=== PATIENT | male | born 1980 | race Hispanic/Latino ===

== ENCOUNTER 2022-12-25 05:53 | Emergency (ER) | payer BC, SELFPAY ==
--- OUTSIDE RECORDS SUMMARY | 2022-12-25 05:56 | XMS REPORT | Continuity of Care Document ---
:1980 Author Organization [facility] t Address [address] [facility]. [address] [place] [address] Care Team Providers Name Role Phone PCP, PATIENT DOES NOT HAVE A Primary Care Physician Unavaila ROD Perez Attending Clinician Unavailable RAQUEL FULTON Attending Clinician Unavailable Raquel Hernadez Attending Clinician Payers Payer Name Policy Type Policy Number Effective Date Expiration Date S freida [facility] [id number] 2015 00:00:00 Problems Condition Condition Condition Status Onset Resolution Last Treating Co mments Source Name Details Category Date Date Treatment Clinician Date No known No known Disease Unive rs active active ity of problems problems [facility] Allergies, Adverse Reactions, Alerts Allergy Allergy Status Severity Reaction(s) Onset Inactive Treating Comm ents Source Name Type Date Date Clinician NO KNOWN Drug Active Univers ALLERGIE Class ity of S [facility] Social History Social Habit Start Date Stop Date Quantity Comments Source Exposure to Not sure [facility] SARS-CoV-2 (event) Medica l Branch Sex Assigned At [birth year] [facility] 00:00:00 00:00:[address] [facility] Smoking Status Start Date Stop Date Source Unknown if ever smoked [facility] Medications Ordered Filled Start Stop Current Ordering Indication Dosage Frequency Signature Comments Components Source Medication Medication Date Date Medication? Clinician (SIG) Name Name &lt 0 No 75 8- 00:00: 00 TAKE 0 No 75 TABLET BY 03-18 MOUTH TWICE 00:00: DAILY WITH 00 MEALS &lt 0 No 75 03-18 00:00: 00 TAKE 0 No 10 TABLET 8-04 DAILY. 00:00: 00 diclofenac 2021- No [id number] 75mg Take 1 Univers 75 mg EC 3-15 04-15 tablet by ity o f tablet 00:00: 04:59 mouth 2 [place] 00 :00 (two) Medical times [place] daily with meals for 30 days. diclofenac 2021- No [id number] 75mg Take 1 Univers 75 mg EC 3-15 04-15 tablet by ity o f tablet 00:00: 04:59 mouth 2 [place] 00 :00 (two) Medical times Branch daily with meals for 30 days. olopatadine Yes 1[drp] Place 1 U nivers (PATANOL) 5-01 Drop in ity of 0.1 % 00:00: both eyes [place] [facility] 00 2 (two) Medica l solution times Branch daily. olopatadine Yes 1[drp] Place 1 U nivers (PATANOL) 5-01 Drop in ity of 0.1 % 00:00: both eyes [place] [facility] 00 2 (two) Medica l solution times Branch daily. Vital Signs Vital Name Observation Time Observation Value Comments Source Systolic blood 2021-10-27 19:13:00 142 mm[Hg] Univer sity [facility] Diastolic blood 2021-10-27 19:13:00 95 [facility] 2021-10-27 18:51:00 60 /min [facility] Body height 2021-10-27 18:51:00 167.6 cm [facility] Body weight 2021-10-27 18:51:00 105.688 kg [facility] BMI 2021-10-27 18:51:00 37.61 kg/m2 [facility] Oxygen saturation in 2021-10-27 18:51:00 100 /min [facility] Arterial blood by [facility] Pulse oximetry Branch BP Systolic 2022-03-18 10:29:00 163 mm[Hg] BP Diastolic 2022-03-18 10:29:00 111 mm[Hg] Weight Measured 2022-03-18 10:29:00 239.20 pounds Height Measured 2022-03-18 10:29:00 66.14 inches Body Temperature 2022-03-18 10:29:00 98.30 degrees Heart Rate 2022-03-18 10:29:00 60.00 /min Respiratory Rate 2022-03-18 10:29:00 18.00 /min BP Systolic 2021-07-08 14:17:00 152 mm[Hg] BP Diastolic 2021-07-08 14:17:00 101 mm[Hg] Weight Measured 2021-07-08 14:17:00 237.00 pounds Height Measured 2021-07-08 14:17:00 66.14 inches Body Temperature 2021-07-08 14:17:00 98.60 degrees Heart Rate 2021-07-08 14:17:00 71.00 /min Respiratory Rate 2021-07-08 14:17:00 18.00 /min BP Systolic 2019-07-11 14:15:00 133 mm[Hg] BP Diastolic 2019-07-11 14:15:00 90 mm[Hg] Weight Measured 2019-07-11 14:15:00 233.80 pounds Height Measured 2019-07-11 14:15:00 66.14 inches Body Temperature 2019-07-11 14:15:00 98.20 degrees Heart Rate 2019-07-11 14:15:00 69.00 /min Respiratory Rate 2019-07-11 14:15:00 18.00 /min BP Systolic 2017-06-27 14:29:00 136 mm[Hg] BP Diastolic 2017-06-27 14:29:00 95 mm[Hg] Weight Measured 2017-06-27 14:29:00 Height Measured 2017-06-27 14:29:00 Body Temperature 2017-06-27 14:29:00 Heart Rate 2017-06-27 14:29:00 Respiratory Rate 2017-06-27 14:29:00 Respiratory Rate 2017-06-27 13:41:00 16.00 /min BP Systolic 2017-06-27 13:41:00 135 mm[Hg] BP Diastolic 2017-06-27 13:41:00 94 mm[Hg] Weight Measured 2017-06-27 13:41:00 235.60 pounds Height Measured 2017-06-27 13:41:00 66.00 inches Body Temperature 2017-06-27 13:41:00 98.00 degrees Heart Rate 2017-06-27 13:41:00 68.00 /min Procedures This patient has no known procedures. Plan of Care Planned Activity Planned Date Details Comments Source Goal Plan of Care Note [code = 99043-9] Goal Plan of Care Note [code = 61565-2] Goal Plan of Care Note [code = 36400-4] Goal Plan of Care Note [code = 68413-4] Goal Plan of Care Note [code = 77161-8] Goal Plan of Care Note [code = 31217-8] Goal Plan of Care Note [code = 17568-9] Goal Plan of Care Note [code = 36732-6] Goal Plan of Care Note [code = 98296-3] Goal Plan of Care Note [code = 58499-7] Goal Plan of Care Note [code = 53688-3] Goal Plan of Care Note [code = 96403-7] Encounters Start End Encounter Admission Attending Care Care Encounter Source Date/Time Date/Time Type Type Clinicians Facility Department ID 2022-10-04 2022-10-04 Outpatient [facility] [id number] Y[place]an 14:46:34 14:46:34 0[address] [facility] [place] 2022-07-14 2022-07-14 Outpatient [facility] [id number] Yazan 13:59:22 13:59:22 1130 [facility] 2022-03-18 2022-03-18 Outpatient [id number] 00:00:00 00:00:00 Visit [id number] 2022-02-17 2022-02-17 Outpatient Milton SALDIVAR [facility] [id number] Univers 15:30:00 15:30:00 ROD walker [facility] 2022-02-17 2022-02-17 Outpatient Milton SALDIVAR [facility] [id number] Univers 15:30:00 15:30:00 ROD walker [facility] 2021-10-27 2021-10-27 Outpatient Milton FULTON [facility] [id number] Univers 14:01:38 23:59:00 [facility] 2021-10-27 Office Donaldo [facility] [id number] Univers 14:00:00 14:30:00 Visit Raquel Ferrell [facility] [id number] it y paul RIDDLE [id number] Elver as LEONARDO?BLEA [id number] In monty [address] MEDICAL OFFICE BUILDING 2021-10-27 2021-10-27 [facility] [id number] Univers 14:00:00 14:00:00 RAQUEL [facility] Results Test Description Test Time Test Comments Results Result Comments Source CALCIUM, IONIZED 2022-10-05 15:28:33 Test Item Value Reference Range Interpretation Comme nts CALCIUM, IONIZED (test 5.67 MG/DL 4.70-5.90 [facility] has important pathology staff code = 03780) changes effect colton 10/13/2022. New pathology staff will provide uninterrupted, excellent patient care and clinical co nsultation. See URL: [email or web address]. UNLESS OTHERWISE INDIC ATED, [facility], [facility]. [address] [place] [address] 4 WIRELESS TELEGRAPHER: GWEN URIBE M.D. CLIA NUMBER [id number] [place]. [id number] PSA, [id number] 04:31:23 Test Item Value Reference Range Interpretation Comments PSA, TOTAL 0.49 NG/ML See_Comment NOTE: Methodol ogy is Ton (test code = Maury Electroch emiluminescence 2606) Immunoassay tra ceable to WHO reference stand juan 96/760. UNLESS OTHERWIS E INDICATED, ALL TESTING PERFORM ED ATCLINICAL PATHOLOGY LABOR [facility], [facility]. [address] [place] [address] LABORATORY DIRE CTOR: GWEN MUIR M.D. CLIA NUMBER [id number] [place]. [id number] [A utomated message] The sy stem which generated this result transmitted ref erence range: <=4.00. The ref erence range was not used to int erpret this result as jessica l/abnormal. LIPID [id number] 03:07:01 Test Item Value Reference Range Interpretation Comments CHOLESTEROL (test 178 MG/DL <200 code = 2210) TRIGLYCERIDES (test 123 MG/DL <150 code = 2232) HDL CHOLESTEROL (test 35 MG/DL >39 L code = 2220) CALC LDL CHOL (test 120 MG/DL <100 H NOTE: C ALCULATED LDL code = 2237) IS BASED ON VINCENT-LEONG METHOD WHICHINCLUDES ADJUSTABLE TRIGLYCERIDE:VL DL CHOLESTEROL RAT IO.THIS FACTOR VARIES B Y MEASURED TRIGLY CERIDE AND NON-HDLCHOL ESTEROL CONCENTRATIONS WITH INCREASED CALCU LATED LDL SEENIN HIGH ER TRIGLYCERIDE OR LOWER NON-HDL SPECIME NS. FOR MOREINFORMATION , SEE CLIENT ANNOUNCE MENT AT [email or web address] RISK RATIO LDL/HDL 3.43 RATIO <3.55 (test code = 2238) COMPREHENSIVE METABOLIC [id number] 03:07:01 Test Item Value Reference Range Interpretation Comments GLUCOSE (test code = 81 MG/DL 70-99 2216) BUN (test code = 10 MG/DL 6-20 2207) CREATININE (test 0.89 MG/DL 0.80-1.40 code = 2214) eGFR (2020 CKD-EPI) 110 >60 (test code = 85220) ML/MIN/1.73 CALC BUN/CREAT (test 11 RATIO 6-28 code = 2235) SODIUM (test code = 140 MEQ/L 920-521 6072) POTASSIUM (test code 5.1 MEQ/L 3.5-5.4 = 222) CHLORIDE (test code 104 MEQ/L 95-107 = 221) CARBON DIOXIDE (test 26 MEQ/L 19-31 code = 2206) CALCIUM (test code = 11.4 MG/DL 8.5-10.5 H 2208) PROTEIN, TOTAL (test 7.3 G/DL 6.1-8.3 code = 2229) ALBUMIN (test code = 4.8 G/DL 3.5-5.2 2200) CALC GLOBULIN (test 2.5 G/DL 1.9-3.7 code = 2240) CALC A/G RATIO (test 1.9 RATIO 1.0-2.6 code = 2234) BILIRUBIN, TOTAL 0.5 MG/DL See_Comment [Automated message] (test code = 2207) The syste m which generated this result transmit karine reference range : <=1.2. The refe rence range was not u sed to interpret th is result as normal/abnormal . ALKALINE PHOSPHATASE 112 U/L 40-119 (test code = 2203) AST (test code = 27 U/L 9-50 2217) ALT (test code = 31 U/L 5-50 2218) HEMOGLOBIN [id number] 02:27:23 Test Item Value Reference Range Interpretation Comments HEMOGLOBIN A1c (test code = 19160) 5.7 % 4.2-5.6 H CBC W/AUTO DIFF WITH [id number] 01:45:03 Test Item Value Reference Range Interpretation Comments WBC (test code = 5.2 K/UL 3.5-11.0 1001) RBC (test code = 5.78 M/UL 4.50-6.10 1002) HEMOGLOBIN (test code 16.5 G/DL 13.5-17.0 = 1003) HEMATOCRIT (test code 48.3 % 40.0-51.0 = 1004) MCV (test code = 83.6 fL 80.0-99.0 1005) MCH (test code = 28.5 PG 25.0-33.0 1006) MCHC (test code = 34.2 G/DL 31.0-36.0 1007) RDW (test code = 12.9 % 11.5-15.0 1038) NEUTROPHILS (test 44.0 % code = 1008) LYMPHOCYTES (test 39.4 % code = 1010) MONOCYTES (test code 12.3 % = 1011) EOSINOPHILS (test 2.7 % code = 1012) BASOPHILS (test code 1.2 % = 1013) IMMATURE GRANULOCYTES 0.4 % (test code = 1036) NUCLEATED RBCS (test 0.0 /100 WBC'S See_Comment [Aut omated code = 1065) message] The sy stem which generated this result transmitted reference range : 0.0. The refere nce range was not u sed to interpret th is result as normal/abnormal . PLATELET COUNT (test 198 K/UL 130-400 code = 1015) ABSOLUTE NEUTROPHILS 2.29 K/UL 1.50-7.50 (test code = 1066) ABSOLUTE LYMPHOCYTES 2.05 K/UL 1.00-4.00 (test code = 1067) ABSOLUTE MONOCYTES 0.64 K/UL 0.20-1.00 (test code = 1068) ABSOLUTE EOSINOPHILS 0.14 K/UL 0.00-0.50 (test code = 1040) ABSOLUTE BASOPHILS 0.06 K/UL 0.00-0.20 (test code = 1069) ABS IMMATURE 0.02 K/UL 0.00-0.10 GRANULOCYTES (test code = 1020) ABS NUCLEATED RBCS 0.00 K/UL 0.00-0.11 (test code = 46342) LIPID [id number] 00:00:00 Test Item Value Reference Range Interpretation Comments CHOLESTEROL (test code = 2210) 150 MG/DL TRIGLYCERIDES (test code = 2232) 103 MG/DL HDL CHOLESTEROL (test code = 2220) 33 MG/DL CALC LDL CHOL (test code = 2237) 96 MG/DL RISK RATIO LDL/HDL (test code = 2.92 RATIO 8) HEMOGLOBIN [id number] 00:00:00 Test Item Value Reference Range Interpretation Comments HEMOGLOBIN A1c (test code = 16438) 5.6 % HEMOGLOBIN [id number] 00:00:00 Test Item Value Reference Range Interpretation Comments HEMOGLOBIN A1c (test code = 01158) 5.6 % COMPREHENSIVE METABOLIC [id number] 00:00:00 Test Item Value Reference Range Interpretation Comments GLUCOSE (test code = 2217) 78 MG/DL BUN (test code = 2208) 14 MG/DL CREATININE (test code = 2214) 0.83 MG/DL eGFR AMER. (test code 128 ML/MIN/1.73 = 00911) eGFR NON- AMER. (test 111 ML/MIN/1.73 code = 45926) CALC BUN/CREAT (test code = 17 RATIO 2235) SODIUM (test code = 2231) 141 MEQ/L POTASSIUM (test code = 2228) 4.4 MEQ/L CHLORIDE (test code = 2215) 105 MEQ/L CARBON DIOXIDE (test code = 26 MEQ/L 2205) CALCIUM (test code = 2209) 10.6 MG/DL PROTEIN, TOTAL (test code = 7.7 G/DL 2228) ALBUMIN (test code = 2201) 4.7 G/DL CALC GLOBULIN (test code = 3.0 G/DL 2239) CALC A/G RATIO (test code = 1.6 RATIO 2234) BILIRUBIN, TOTAL (test code = 0.4 MG/DL 7) ALKALINE PHOSPHATASE (test 112 U/L code = 2204) AST (test code = 2218) 25 U/L ALT (test code = 2219) 26 U/L CBC W/AUTO [id number] 00:00:00 Test Item Value Reference Range Interpretation Comments WBC (test code = 1001) 7.4 K/UL RBC (test code = 1002) 5.57 M/UL HEMOGLOBIN (test code = 1003) 15.6 G/DL HEMATOCRIT (test code = 1004) 45.0 % MCV (test code = 1005) 80.8 fL MCH (test code = 1006) 28.0 PG MCHC (test code = 1007) 34.7 G/DL RDW (test code = 1038) 12.6 % NEUTROPHILS (test code = 1008) 58.5 % LYMPHOCYTES (test code = 1010) 30.0 % MONOCYTES (test code = 1011) 9.2 % EOSINOPHILS (test code = 1012) 1.5 % BASOPHILS (test code = 1013) 0.8 % PLATELET COUNT (test code = 1015) 240 K/UL CBC W/AUTO [id number] 00:00:00 Test Item Value Reference Range Interpretation Comments WBC (test code = 1001) 7.4 K/UL RBC (test code = 1002) 5.57 M/UL HEMOGLOBIN (test code = 1003) 15.6 G/DL HEMATOCRIT (test code = 1004) 45.0 % MCV (test code = 1005) 80.8 fL MCH (test code = 1006) 28.0 PG MCHC (test code = 1007) 34.7 G/DL RDW (test code = 1038) 12.6 % NEUTROPHILS (test code = 1008) 58.5 % LYMPHOCYTES (test code = 1010) 30.0 % MONOCYTES (test code = 1011) 9.2 % EOSINOPHILS (test code = 1012) 1.5 % BASOPHILS (test code = 1013) 0.8 % PLATELET COUNT (test code = 1015) 240 K/UL HEMOGLOBIN [id number] 00:00:00 Test Item Value Reference Range Interpretation Comments HEMOGLOBIN A1c (test code = 79304) 5.6 % COMPREHENSIVE METABOLIC [id number] 00:00:00 Test Item Value Reference Range Interpretation Comments GLUCOSE (test code = 2217) 80 MG/DL BUN (test code = 2208) 14 MG/DL CREATININE (test code = 2214) 0.94 MG/DL eGFR AMER. (test code 120 ML/MIN/1.73 = 97650) eGFR NON- AMER. (test 103 ML/MIN/1.73 code = 67421) CALC BUN/CREAT (test code = 15 RATIO 2235) SODIUM (test code = 2231) 142 MEQ/L POTASSIUM (test code = 2228) 4.7 MEQ/L CHLORIDE (test code = 2215) 103 MEQ/L CARBON DIOXIDE (test code = 28 MEQ/L 2205) CALCIUM (test code = 2209) 9.9 MG/DL PROTEIN, TOTAL (test code = 7.3 G/DL 2228) ALBUMIN (test code = 2201) 4.9 G/DL CALC GLOBULIN (test code = 2.4 G/DL 2240) CALC A/G RATIO (test code = 2.0 RATIO 2234) BILIRUBIN, TOTAL (test code = 0.3 MG/DL 2206) ALKALINE PHOSPHATASE (test 97 U/L code = 2204) AST (test code = 2218) 30 U/L ALT (test code = 2219) 31 U/L LIPID [id number] 00:00:00 Test Item Value Reference Range Interpretation Comments CHOLESTEROL (test code = 2210) 145 MG/DL TRIGLYCERIDES (test code = 2232) 81 MG/DL HDL CHOLESTEROL (test code = 2220) 35 MG/DL CALC LDL CHOL (test code = 2237) 94 MG/DL RISK RATIO LDL/HDL (test code = 2.68 RATIO 2238) HEMOGLOBIN [id number] 00:00:00 Test Item Value Reference Range Interpretation Comments HEMOGLOBIN A1c (test code = 21196) 5.6 %
[2022-12-25] MEDS ORDERED: MORPHINE 4 MG/ML SYR ONE ×2 (06:19→07:12)
[2022-12-25] MEDS ORDERED: ONDANSETRON 4 MG/2 ML VIAL ONE (06:19)
[2022-12-25] MEDS ORDERED: KETOROLAC 30 MG/ML INJ ONE (06:19)
[2022-12-25 06:25] LABS: Hematocrit 48.5 % (39.6-49.0); Lymphocytes % 17.7 % (15.3-44.8); MCV 84.2 fL (80-100); MPV 8.7 fL (7.6-11.3); RBC Red Blood Cell Count 5.76 M/uL (4.33-5.43)
[2022-12-25 06:28] LABS: Specific Gravity 1.018 (1.005-1.030); Urine Bacteria None Seen /HPF (<20); Urine Bilirubin NEGATIVE (Negative); Urine Blood 3+ (OVER) (Negative); Urine Clarity Clear (Clear); Urine Color Light-Yellow (Yellow); Urine Glucose NEGATIVE (Negative); Urine Mucus Slight /HPF (None Seen); Urine Protein TRACE (Negative); Urine RBC >50 /HPF (None Seen); Urine Urobilinogen Normal (Normal); Urine pH 5.5 (5.0-7.0)
[2022-12-25 06:57] LABS: Albumin 3.9 g/dL (3.4-5.0); Bilirubin Total 0.5 mg/dL (0.2-1.0); Protein, Total 7.5 g/dL (6.4-8.2)
[2022-12-25] MEDS ORDERED: MAGNESIUM SULFATE 1 gm IVPB 1 GM/100 ML BAG IV ONE (07:12)
--- NOTE | 2022-12-25 08:18 | ER ---
Nurse's Notes [facility] Name: Jack Zuniga Jr Age: 42 yrs Sex: Male : 1980 Arrival Date: 12/25/2022 Time: 05:53 Bed 13 Private MD: Diagnosis: Kidney Stone/ Calculus in urethra Presentation: 12/25 05:56 Chief complaint: Patient states: C/O RLQ pain that radiates to right flank pain of pf1 10,onset yesterday,worse this AM. Patient stated did have some back pain last week that lasted for 3 days then resolved. Patient denies any urinary symptoms, nausea or vomiting. Patient stated LBM was this AM with normal stool. 05:56 Coronavirus screen: Vaccine status: Patient reports receiving the 2nd dose of the covid pf1 vaccine. Moderna Client denies travel out of the [place] in the last 14 days. At this time, the client does not indicate any symptoms associated with coronavirus-19. Ebola Screen: Patient negative for fever greater than or equal to 101.5 degrees Fahrenheit, and additional compatible Ebola Virus Disease symptoms. Initial Sepsis Screen: Does the patient meet any 2 criteria? No. Patient's initial sepsis screen is negative. Does the patient have a suspected source of infection? No. Patient's initial sepsis screen is negative. Risk Assessment: Do you want to hurt yourself or someone else? Patient reports no desire to harm self or others. 05:56 Method Of Arrival: Ambulatory pf1 05:56 Acuity: REGINA 3 pf1 06:23 Onset of symptoms is unknown. vc1 Triage Assessment: 06:21 General: Appears in no apparent distress. uncomfortable, Behavior is calm, cooperative, vc1 appropriate for age. Pain: Complains of pain in suprapubic area Pain radiates to anterior aspect of right lateral abdomen and posterior aspect of right lateral abdomen Pain currently is 9 out of 10 on a pain scale. EENT: No deficits noted. No signs and/or symptoms were reported regarding the EENT system. Neuro: Level of Consciousness is awake, alert, obeys commands, Oriented to person, place, time, situation, Appropriate for age. Cardiovascular: No deficits noted. Respiratory: Airway is patent Respiratory effort is even, unlabored, Respiratory pattern is regular, symmetrical. GI: Reports lower abdominal pain. : Reports pain in right in suprapubic area flank(s), in lower back. Derm: No deficits noted. No signs and/or symptoms reported regarding the dermatologic system. Musculoskeletal: No deficits noted. No signs and/or symptoms reported regarding the musculoskeletal system. Historical: - Allergies: 06:16 No Known Allergies; pf1 - Home Meds: 06:16 lisinopril 10 mg Oral tablet 1 tab daily [Active]; tadalafil 5 mg oral tablet as needed pf1 [Active]; - PMHx: 06:16 Hypertensive disorder; BPH; pf1 - PSHx: 06:16 hernia repair; pf1 - Immunization history:: Adult Immunizations up to date, Last tetanus immunization: > 10 years ago Flu vaccine is not up to date. - Family history:: not pertinent. - Social history:: Smoking status: Patient denies any tobacco usage or history of. Patient uses alcohol, occasionally. Patient/guardian denies using street drugs. - Hospitalizations: : No recent hospitalization is reported. Screenin:19 [facility] ED Fall Risk Assessment (Adult) History of falling in the last 3 months, pf1 including since admission No falls in past 3 months (0 pts) Confusion or Disorientation No (0 pts) Intoxicated or Sedated No (0 pts) Impaired Gait No (0 pts) Mobility Assist Device Used No (0 pt) Altered Elimination No (0 pt) Score/Fall Risk Level 0 - 2 = Low Risk Oriented to surroundings, Maintained a safe environment, Educated pt \T\ family on fall prevention, incl call for assistance when getting out of bed, Assessed \T\ reinforced patient's understanding of fall precautions, Provided non-skid footwear, Hourly rounding (assess needs \T\ fall precautionary measures) done, Used ambulatory aids as needed (educated on \T\ assisted with), Used gait belt as appropriate. Abuse screen: Denies threats or abuse. Nutritional screening: No deficits noted. Tuberculosis screening: No symptoms or risk factors identified. Assessment: 06:22 GI: Bowel sounds present X 4 quads. Abd is soft Abdomen is tender to palpation. vc1 06:33 Reassessment: Patient and/or family updated on plan of care and expected duration. Pain vc1 level reassessed. Pt states sharp pain is gone only discomfort remains. Patient states feeling better. Patient states symptoms have improved. 07:00 Reassessment: Patient appears in no apparent distress at this time. No changes from kc6 previously documented assessment. Patient and/or family updated on plan of care and expected duration. Pain level reassessed. Patient is alert, oriented x 3, equal unlabored respirations, skin warm/dry/pink. 08:00 Reassessment: Patient appears in no apparent distress at this time. No changes from kc6 previously documented assessment. Patient and/or family updated on plan of care and expected duration. Pain level reassessed. Patient is alert, oriented x 3, equal unlabored respirations, skin warm/dry/pink. Vital Signs: 05:56 BP 162 / 112; Pulse 80; Resp 18; Temp 98.7; Pulse Ox 100% on R/A; Weight 95.25 kg; pf1 Height 5 ft. 6 in. ; Pain 10/10; 06:33 BP 161 / 104; Pulse 73; Resp 18; Pulse Ox 96% ; vc1 07:13 BP 135 / 92; Pulse 85; Resp 18 S; Pulse Ox 98% on R/A; kc6 08:05 BP 143 / 98; Pulse 85; Resp 18 S; Pulse Ox 94% on R/A; kc6 05:56 Body Mass Index 33.89 (95.25 kg, 167.64 cm) pf1 05:56 Pain Scale: Adult pf1 ED Course: 05:54 Patient arrived in ED. [id number] 05:56 Vernon Christianson MD is Attending Physician. rn 06:09 Delmy Mas RN is Primary Nurse. vc1 06:09 Inserted saline lock: 20 gauge in right antecubital area, using aseptic technique. vc1 Blood collected. 06:16 Triage completed. pf1 06:20 CBC with Diff Sent. vc1 06:20 CMP Sent. vc1 06:20 Lipase Sent. vc1 06:20 Urinalysis w/ reflexes Sent. vc1 06:22 No provider procedures requiring assistance completed. vc1 06:22 Arm band placed on left wrist. vc1 06:23 Patient has correct armband on for positive identification. Bed in low position. Call vc1 light in reach. Pulse ox on. NIBP on. 06:32 CT Stone Protocol In Process Unspecified. EDMS 07:00 Report received from SARMAD Brock. kc6 07:03 Attending Physician role handed off by Vernon Christianson MD bs3 07:03 Stepan Hutchinson MD is Attending Physician. bs3 07:06 Primary Nurse role handed off by Delmy Mas RN 07:12 Coco Anna RN is Primary Nurse. kc6 08:18 Tim Gauthier MD is Referral Physician. bs3 08:45 IV discontinued, intact, bleeding controlled, No redness/swelling at site. Pressure kc6 dressing applied. Administered Medications: 06:20 Drug: TORadol - Ketorolac IVP 15 mg Route: IVP; Site: right antecubital; vc1 07:00 Follow up: Response: No adverse reaction; Pain is decreased kc6 06:20 Drug: Ondansetron IVP 4 mg Route: IVP; Site: right antecubital; vc1 07:00 Follow up: Response: No adverse reaction kc6 06:20 Drug: morphine IVP or IV 4 mg Route: IVP; Infused Over: 4 mins; Site: right antecubital;vc1 07:00 Follow up: Response: No adverse reaction; Pain is decreased; RASS: Alert and Calm (0) kc6 07:12 Drug: Magnesium Sulfate IVPB 1 grams Route: IVPB; Infused Over: 1 hrs; Site: right kc6 antecubital; 08:14 Follow up: Response: No adverse reaction; IV Status: Completed infusion; IV Intake: kc6 100ml 07:12 Drug: morphine IVP or IV 4 mg Route: IVP; Infused Over: 4 mins; Site: right antecubital;kc6 08:14 Follow up: Response: No adverse reaction; Pain is decreased; RASS: Alert and Calm (0) kc6 Medication: 06:23 VIS not applicable for this client. vc1 Intake: 08:14 IV: 100ml; Total: 100ml. kc6 Outcome: 08:18 Discharge ordered by . bs3 08:45 Discharged to home ambulatory, with significant other. kc6 08:45 Condition: improved 08:45 Discharge instructions given to patient, Instructed on discharge instructions, follow up and referral plans. medication usage, Demonstrated understanding of instructions, follow-up care, medications, Prescriptions given X 4. 08:45 Patient left the ED. kc6 Signatures: Dispatcher [employer] EDMS Vernon Christianson MD MD rn Botello, Elizabeth eb Jeffries, Jennifer jj6 Delmy Mas RN RN vc1 Coco Anna RN RN kc6 Stepan Hutchinson MD MD bs3 Marianne salcedo RN RN pf1 Corrections: (The following items were deleted from the chart) 06:16 06:11 Chief complaint: Patient states: C/O RLQ pain that radiates to right flank pain pf1 of 10,onset yesterday,worse this AM. Patient stated did have some back pain last week that lasted for 3 days then resolved. Patient denies any urinary symptoms, nausea or vomiting. Patient stated LBM was this AM with normal stool. pf1
--- NOTE | 2022-12-25 08:18 | EDPHYS ---
Physician Documentation [facility] Name: Jack Zuniga Jr Age: 42 yrs Sex: Male : 1980 Arrival Date: 12/25/2022 Time: 05:53 Bed 13 Private MD: ED Physician Stepan Hutchinson HPI: 12/25 06:10 This 42 yrs old Male presents to ER via Unassigned with complaints of flank pain. rn 06:10 The patient complains of pain in the right mid back. The pain radiates to the pelvis. rn Onset: The symptoms/episode began/occurred this morning. Modifying factors: The symptoms are alleviated by nothing. the symptoms are aggravated by nothing. Associated signs and symptoms: Pertinent negatives: diarrhea, dysuria, fever, urinary frequency, hematuria, pain radiating to the lower extremities, vomiting. Severity of pain: At its worst the pain was moderate in the emergency department the pain is unchanged. The patient has not experienced similar symptoms in the past. The patient has not recently seen a physician. Historical: - Allergies: 06:16 No Known Allergies; pf1 - Home Meds: 06:16 lisinopril 10 mg Oral tablet 1 tab daily [Active]; tadalafil 5 mg oral tablet as needed pf1 [Active]; - PMHx: 06:16 Hypertensive disorder; BPH; pf1 - PSHx: 06:16 hernia repair; pf1 - Immunization history:: Adult Immunizations up to date, Last tetanus immunization: > 10 years ago Flu vaccine is not up to date. - Family history:: not pertinent. - Social history:: Smoking status: Patient denies any tobacco usage or history of. Patient uses alcohol, occasionally. Patient/guardian denies using street drugs. - Hospitalizations: : No recent hospitalization is reported. ROS: 06:10 Constitutional: Negative for fever, chills, and weight loss, Cardiovascular: Negative rn for chest pain, palpitations, and edema, Respiratory: Negative for shortness of breath, cough, wheezing, and pleuritic chest pain, Abdomen/GI: + RLQ/groin pain Back: + right flank/lower back pain : Negative for injury, bleeding, discharge, and swelling, MS/Extremity: Negative for injury and deformity. Exam: 06:10 Constitutional: This is a well developed, well nourished patient who is awake, alert, rn appears uncomfortable Cardiovascular: Regular rate and rhythm. No pulse deficits. Abdomen/GI: soft, mild RLQ tenderness, no distension, no peritoneal signs Back: No spinal tenderness. No costovertebral tenderness. Vital Signs: 05:56 BP 162 / 112; Pulse 80; Resp 18; Temp 98.7; Pulse Ox 100% on R/A; Weight 95.25 kg; pf1 Height 5 ft. 6 in. ; Pain 10/10; 06:33 BP 161 / 104; Pulse 73; Resp 18; Pulse Ox 96% ; vc1 07:13 BP 135 / 92; Pulse 85; Resp 18 S; Pulse Ox 98% on R/A; kc6 08:05 BP 143 / 98; Pulse 85; Resp 18 S; Pulse Ox 94% on R/A; kc6 05:56 Body Mass Index 33.89 (95.25 kg, 167.64 cm) pf1 05:56 Pain Scale: Adult pf1 MDM: 05:56 Patient medically screened. rn 07:04 Data reviewed: vital signs, nurses notes. ED course: pt reassessed, feeling much bs3 better, labs notable for rbc/blood in urine. Likely small stone.. 08:16 Independent interpretation of the following test(s) in the Emergency Department CT bs3 Scan: My interpretation is prox kidney stone, mild hydronephrosis. ED course: CT reviewed by radiology consistent with a proximal kidney stone with hydroadvised return precautions including fevers chills intractable pain advised follow-up with urology. 12/25 06:08 Order name: CBC with Diff; Complete Time: 06:56 rn 12/25 06:08 Order name: CMP; Complete Time: 07:03 rn 12/25 06:08 Order name: Lipase; Complete Time: 07:03 rn 12/25 06:08 Order name: Urinalysis w/ reflexes; Complete Time: 06:56 rn 12/25 06:08 Order name: CT Stone Protocol rn 12/25 06:08 Order name: IV Saline Lock; Complete Time: 06:10 rn 12/25 06:08 Order name: Labs collected and sent; Complete Time: 06:20 rn 12/25 06:29 Order name: Labs - recollect needed: recollect chemistries; Complete Time: 06:35 ds4 Administered Medications: 06:20 Drug: TORadol - Ketorolac IVP 15 mg Route: IVP; Site: right antecubital; vc1 07:00 Follow up: Response: No adverse reaction; Pain is decreased kc6 06:20 Drug: Ondansetron IVP 4 mg Route: IVP; Site: right antecubital; vc1 07:00 Follow up: Response: No adverse reaction kc6 06:20 Drug: morphine IVP or IV 4 mg Route: IVP; Infused Over: 4 mins; Site: right antecubital;vc1 07:00 Follow up: Response: No adverse reaction; Pain is decreased; RASS: Alert and Calm (0) kc6 07:12 Drug: Magnesium Sulfate IVPB 1 grams Route: IVPB; Infused Over: 1 hrs; Site: right kc6 antecubital; 08:14 Follow up: Response: No adverse reaction; IV Status: Completed infusion; IV Intake: kc6 100ml 07:12 Drug: morphine IVP or IV 4 mg Route: IVP; Infused Over: 4 mins; Site: right antecubital;kc6 08:14 Follow up: Response: No adverse reaction; Pain is decreased; RASS: Alert and Calm (0) 6 Disposition Summary: 12/25/22 08:18 Discharge Ordered Location: Home bs3 Problem: new bs3 Symptoms: have improved bs3 Condition: Stable bs3 Diagnosis - Kidney Stone/ Calculus in urethra bs3 Followup: bs3 - With: - When: 5 - 6 days - Reason: Re-evaluation by your physician Discharge Instructions: - Discharge Summary Sheet bs3 - Kidney Stones, [id number] bs3 Forms: - Medication Reconciliation Form bs3 - Thank You Letter bs3 - Antibiotic Education bs3 - Prescription Opioid Use bs3 Prescriptions: - Flomax 0.4 mg Oral capsule - take 1 capsule by ORAL route once for 14 days; 14 capsule; Refills: 0, Product bs3 Selection Permitted - acetaminophen-codeine 300-15 mg Oral tablet - take 1 tablet by ORAL route every 6 to 8 hours for 3 days; 8 tablet; Refills: bs3 0, Product Selection Permitted - ibuprofen 200 mg Oral capsule - take 3 capsule by ORAL route every 6 to 8 hours for 5 days; 60 capsule; bs3 Refills: 0, Product Selection Permitted - ondansetron 8 mg Oral tablet,disintegrating - take 1 tablet by ORAL route every 8 hours; 14 tablet; Refills: 0, Product bs3 Selection Permitted Signatures: Dispatcher [employer] Vernon Leal MD MD rn Swanson, Donovan ds4 Delmy Mas RN RN vc1 Coco Anna RN RN kc6 Stepan Hutchinson MD MD bs3 Marianne salcedo RN RN pf1
[2022-12-25 09:10] VITALS: TEMP 98.7
[2022-12-25 09:13] VITALS: BP 143/98; O2SAT 94
--- NOTE | 2022-12-28 13:31 | RAD REPORT ---
EXAM DESCRIPTION: CT - Stone Protocol - 12/25/2022 6:55 am CLINICAL HISTORY: 42 years Male right flank pain COMPARISON: None TECHNIQUE: CT of the abdomen and pelvis without contrast. All CT scans at this facility use dose modulation, iterative reconstruction, and/or weight based dosi ng when appropriate to reduce radiation dose to as low as reasonably achievable. FINDINGS: Lower thorax: Lung bases are clear Abdomen: Stomach: Within normal limits Liver: No focal lesions. No intrahepatic ductal distention. Gallbladder: Nondistended Pancreas: Within normal limits Spleen: Within normal limits Right kidney: Moderate hydronephrosis. Proximal ureteral stone measuring 5 mm. Left kidney: No hydronephrosis. 4 mm renal stone. Adrenal glands: Within normal limits Vascular structures: Within normal limits (although limited evaluation on noncontrast exam). Lymph nodes: No lymphadenopathy by size criteria Pelvis: Small bowel: No significant distention. Appendix: Within normal limits Colon: No distention or acute pericolonic edema. Peritoneum: No free intraperitoneal fluid or air. Bones: No acute bone findings. Bladder: Mild diffuse wall thickening, likely secondary to underdistention. Reproductive organs: No acute findings. Soft tissues: Small fat-containing umbilical hernia. Small fat-containing left inguinal hernia. Note that evaluation of the bowel and solid organs is somewhat limited due to lack of intravenous and oral contrast. IMPRESSION: 1. Moderate right-sided hydronephrosis secondary to right proximal ureteral stone wali uring 5 mm. 2. Left-sided nephrolithiasis. Electronically signed by: Yuli Driscoll MD 12/25/2022 6:48 AM CDT Due to temporary technical issues with the PACS/Fluency reporting system, reports are being signed by the in house radiologist without review as a courtesy to ensure prompt reporting. The interpreting r adiologist is fully responsible for the content of the report.
== END 2022-12-25 08:45 | disposition home or self-care (01) ==
LOC: ER 05:53
DX: N20.0 Calculus of kidney (principal); N21.1 Calculus in urethra
CPT/HCPCS: 36415; 74176; 76377; 80053; 81001; 83690; 85025; 96365; 96375; 99284; J2405; J3475

== ENCOUNTER 2023-01-18 17:56 | Emergency (ER) | payer SELFPAY ==
--- OUTSIDE RECORDS SUMMARY | 2023-01-18 17:59 | XMS REPORT | Continuity of Care Document ---
:1980 Author Organization [facility] t Address [address] [facility] [address] [place] [address] Care Team Providers Name Role Phone PCP, PATIENT DOES NOT HAVE A Primary Care Physician Unavaila ROD Perez Attending Clinician Unavailable RAQUEL FULTON Attending Clinician Unavailable Raquel Hernadez Attending Clinician Payers Payer Name Policy Type Policy Number Effective Date Expiration Date S freida [facility] [id number] 2015 00:00:00 Problems Condition Condition Condition Status Onset Resolution Last Treating Co mments Source Name Details Category Date Date Treatment Clinician Date No known No known Disease Unive rs active active ity of problems problems [facility] Allergies, Adverse Reactions, Alerts Allergy Allergy Status Severity Reaction(s) Onset Inactive Treating Comm ents Source Name Type Date Date Clinician NO KNOWN Drug Active Univers ALLERGIE Class ity of S [facility] Social History Social Habit Start Date Stop Date Quantity Comments Source Exposure to Not sure [facility] SARS-CoV-2 (event) Medica l Branch Sex Assigned At [birth year] [facility] 00:00:00 00:00:00 [facility] Smoking Status Start Date Stop Date Source Unknown if ever smoked [facility] Medications Ordered Filled Start Stop Current Ordering Indication Dosage Frequency Signature Comments Components Source Medication Medication Date Date Medication? Clinician (SIG) Name Name &lt 0 No 75 8- 00:00: 00 TAKE 1 2021-0 No 75 TABLET BY 8-04 MOUTH TWICE 00:00: DAILY WITH 00 MEALS &lt 2021-0 No 75 8- 00:00: 00 TAKE 1 2021-0 No 10 TABLET 8-04 DAILY. 00:00: 00 diclofenac 2021- No [id number] 75mg Take 1 Univers 75 mg EC 3-15 04-15 tablet by ity o f tablet 00:00: 04:59 mouth 2 [place] 00 :00 (two) Medical times [place] daily with meals for 30 days. diclofenac 2021- No [id number] 75mg Take 1 Univers 75 mg EC 3-15 04-15 tablet by ity o f tablet 00:00: 04:59 mouth 2 [place] 00 :00 (two) Medical times [place] daily with meals for 30 days. olopatadine Yes 1[drp] Place 1 U nivers (PATANOL) 5-01 Drop in ity of 0.1 % 00:00: both eyes [place] [facility] 00 2 (two) Medica l solution times Branch daily. olopatadine Yes 1[drp] Place 1 U nivers (PATANOL) 5-01 Drop in ity of 0.1 % 00:00: both eyes [place] [facility] 00 2 (two) Medica l solution times Branch daily. Vital Signs Vital Name Observation Time Observation Value Comments Source Systolic blood 2021-10-27 19:13:00 142 mm[Hg] Univer sity [facility] Diastolic blood 2021-10-27 19:13:00 95 mm[Hg] [facility] [place] Heart rate 2021-10-27 18:51:00 60 /min [facility] Body height 2021-10-27 18:51:00 167.6 cm [facility] Body weight 2021-10-27 18:51:00 105.688 kg [facility] BMI 2021-10-27 18:51:00 37.61 kg/m2 [facility] Oxygen saturation in 2021-10-27 18:51:00 100 /min [facility] Arterial blood by [facility] Pulse oximetry Branch BP Systolic [...] Rate 2017-06-27 14:29:00 Respiratory Rate 2017-06-27 14:29:00 Heart Rate 2017-06-27 13:41:00 68.00 /min Respiratory Rate 2017-06-27 13:41:00 16.00 /min BP Systolic 2017-06-27 13:41:00 135 mm[Hg] BP Diastolic 2017-06-27 13:41:00 94 mm[Hg] Weight Measured 2017-06-27 13:41:00 235.60 pounds Height Measured 2017-06-27 13:41:00 66.00 inches Body Temperature 2017-06-27 13:41:00 98.00 degrees Procedures This patient has no known procedures. Plan of Care Planned Activity Planned Date Details Comments Source Goal Plan of Care Note [code = 26645-1] Goal Plan of Care Note [code = 23298-4] Goal Plan of Care Note [code = 04137-9] Goal Plan of Care Note [code = 70992-9] Goal Plan of Care Note [code = 17923-0] Goal Plan of Care Note [code = 10993-8] Goal Plan of Care Note [code = 10786-7] Goal Plan of Care Note [code = 75700-2] Goal Plan of Care Note [code = 32155-1] Goal Plan of Care Note [code = 97565-3] Goal Plan of Care Note [code = 82512-2] Goal Plan of Care Note [code = 71061-2] Encounters Start End Encounter Admission Attending Care Care Encounter Source Date/Time Date/Time Type Type Clinicians Facility Department ID 2023-01-12 Outpatient [facility] [id number] Common 15:40:01 [id number] [facility] 2022-10-04 2022-10-04 Outpatient SFA SFA [id number] Yazan 14:46:34 14:46:34 [id number] [facility] [place] 2022-07-14 2022-07-14 Outpatient SFA [id number] [id number] Yazan 13:59:22 13:59:22 [address] [place] 2022-03-18 2022-03-18 Outpatient [id number] 00:00:00 00:00:00 Visit [id number] 2022-02-17 2022-02-17 Outpatient Milton [facility]DIV[facility] [id number] Univers 15:30:00 15:30:00 ROD balbuena [facility] 2022-02-17 2022-02-17 Outpatient Milton [facility]DIV[facility] [id number] Univers 15:30:00 15:30:00 ROD walker [facility] 2021-10-27 2021-10-27 [facility] [id number] [facility] 14:01:38 23:59:00 [facility] 2021-10-27 2021-10-27 [facility] [id number] Univers 14:00:00 14:30:00 Visit Raquel LAGUNA [id number] it y of [place] [id number] Elver as LEONARDO?BLEA [id number] Mt dical [address] MEDICAL OFFICE [facility] 2021-10-27 2021-10-27 Outpatient Milton FULTON [facility] [id number] [facility] 14:00:00 14:00:00 [facility] Results Test Description Test Time Test Comments Results Result Comments Source CALCIUM, IONIZED 2022-10-05 15:28:33 Test Item Value Reference Range Interpretation Comme nts CALCIUM, IONIZED (test 5.67 MG/DL 4.70-5.90 [facility] has important pathology staff code = 60150) changes effect colton 10/13/2022. New pathology staff will provide uninterrupted, excellent patient care and clinical co nsultation. See URL: [email or web address]. UNLESS OTHERWISE INDIC ATED, ALL TESTING [facility]FOR[facility]. [address] [place] [address] 4 COMPUTER CONSULTANT: GWEN URIBE M.D. CLIA NUMBER [id number] [place]. [id number] PSA, [id number] 04:31:23 Test Item Value Reference Range Interpretation Comments PSA, TOTAL 0.49 NG/ML See_Comment NOTE: Methodol ogy is Ton (test code = Maury Electroch emiluminescence 2606) Immunoassay tra ceable to WHO reference stand juan 96/760. UNLESS OTHERWIS E INDICATED, ALL TESTING PERFORM ED [facility], [facility]. [address] [place] [id number] LABORATORY DIRE CTOR: GWEN MUIR M.D. CLIA NUMBER [id number] [place]. [id number] [A utomated message] The sy stem which generated this result transmitted ref erence range: <=4.00. The ref erence range was not used to int erpret this result as ejssica l/abnormal. LIPID [id number] 03:07:01 Test Item Value Reference Range Interpretation [...] MOREINFORMATION , SEE CLIENT ANNOUNCE MENT AT [email or web address] RISK RATIO LDL/HDL 3.43 RATIO <3.55 (test code = 2238) COMPREHENSIVE METABOLIC [id number] 03:07:01 Test Item Value Reference Range Interpretation Comments GLUCOSE (test code = 81 MG/DL 70-99 2216) BUN (test code = 10 MG/DL 6-20 2207) CREATININE (test 0.89 MG/DL 0.80-1.40 code = 2214) eGFR (2020 CKD-EPI) 110 >60 (test code = 76948) ML/MIN/1.73 CALC BUN/CREAT (test 11 RATIO 6-28 code = 2235) SODIUM (test code = 140 MEQ/L 708-812 6871) POTASSIUM (test code 5.1 MEQ/L 3.5-5.4 = 2227) CHLORIDE (test code 104 MEQ/L 95-107 = 2215) CARBON DIOXIDE (test 26 MEQ/L 19-31 code [...] PHOSPHATASE 112 U/L 40-119 (test code = 2204) AST (test code = 27 U/L 9-50 8) ALT (test code = 31 U/L 5-50 221) HEMOGLOBIN [id number] 02:27:23 Test Item Value Reference Range Interpretation Comments HEMOGLOBIN A1c (test code = 34910) 5.7 % 4.2-5.6 H CBC W/AUTO DIFF WITH [id number] 01:45:03 Test Item Value Reference Range Interpretation [...] RBCS 0.00 K/UL 0.00-0.11 (test code = 87740) LIPID [id number] 00:00:00 Test Item Value Reference Range Interpretation Comments CHOLESTEROL (test code = 2210) 150 MG/DL TRIGLYCERIDES (test code = 2232) 103 MG/DL HDL CHOLESTEROL (test code = 2220) 33 MG/DL CALC LDL CHOL (test code = 2237) 96 MG/DL RISK RATIO LDL/HDL (test code = 2.92 RATIO 2238) HEMOGLOBIN [id number] 00:00:00 Test Item Value Reference Range Interpretation Comments HEMOGLOBIN A1c (test code = 69247) 5.6 % HEMOGLOBIN [id number] 00:00:00 Test Item Value Reference Range Interpretation Comments HEMOGLOBIN A1c (test code = 38151) 5.6 % COMPREHENSIVE METABOLIC [id number] 00:00:00 Test Item Value Reference Range Interpretation Comments GLUCOSE (test code = 2217) 78 MG/DL BUN (test code = 2208) 14 MG/DL CREATININE (test code = 2214) 0.83 MG/DL eGFR AMER. (test code 128 ML/MIN/1.73 = 44726) eGFR NON- AMER. (test 111 ML/MIN/1.73 code = 68964) CALC BUN/CREAT (test code = 17 RATIO 2235) SODIUM (test code = 2231) 141 MEQ/L POTASSIUM (test code = 2228) 4.4 MEQ/L CHLORIDE (test code = 2215) 105 MEQ/L CARBON DIOXIDE (test code = 26 MEQ/L 2205) CALCIUM (test code = 2209) 10.6 MG/DL PROTEIN, TOTAL (test code = 7.7 G/DL 2228) ALBUMIN (test code = 220) 4.7 G/DL CALC GLOBULIN (test code = 3.0 G/DL 2239) CALC A/G RATIO (test code = 1.6 RATIO 2233) BILIRUBIN, TOTAL (test code = 0.4 MG/DL 2206) ALKALINE PHOSPHATASE (test 112 U/L code = 2204) AST (test code = 2218) 25 U/L ALT (test code = 2219) 26 U/L CBC W/AUTO [id number] 00:00:00 Test Item Value Reference Range Interpretation [...] code = 1015) 240 K/UL CBC W/AUTO [id number] 00:00:00 Test Item Value Reference Range Interpretation [...] (test code = 1015) 240 K/UL HEMOGLOBIN [id number] 00:00:00 Test Item Value Reference Range Interpretation Comments HEMOGLOBIN A1c (test code = 00270) 5.6 % COMPREHENSIVE METABOLIC [id number] 00:00:00 Test Item Value Reference Range Interpretation Comments GLUCOSE (test code = 2217) 80 MG/DL BUN (test code = 2208) 14 MG/DL CREATININE (test code = 2214) 0.94 MG/DL eGFR AMER. (test code 120 ML/MIN/1.73 = 21161) eGFR NON- AMER. (test 103 ML/MIN/1.73 code = 19508) CALC BUN/CREAT (test code = 15 RATIO [...] CALC GLOBULIN (test code = 2.4 G/DL 224) CALC A/G RATIO (test code = 2.0 RATIO 2234) BILIRUBIN, TOTAL (test code = 0.3 MG/DL 2206) ALKALINE PHOSPHATASE (test 97 U/L code = 2204) AST (test code = 2218) 30 U/L ALT (test code = 2219) 31 U/L LIPID [id number] 00:00:00 Test Item Value Reference Range Interpretation Comments CHOLESTEROL (test code = 2210) 145 MG/DL TRIGLYCERIDES (test code = 2232) 81 MG/DL HDL CHOLESTEROL (test code = 2220) 35 MG/DL CALC LDL CHOL (test code = 2237) 94 MG/DL RISK RATIO LDL/HDL (test code = 2.68 RATIO 2238) HEMOGLOBIN [id number] 00:00:00 Test Item Value Reference Range Interpretation Comments HEMOGLOBIN A1c (test code = 66872) 5.6 %
[2023-01-18 19:09] LABS: Absolute Lymphocytes (CBC) 1.1 K/uL (0.7-4.9); Hematocrit 47.9 % (39.6-49.0); Lymphocytes % 10.3 % (15.3-44.8); MPV 8.3 fL (7.6-11.3)
[2023-01-18 19:25] LABS: Albumin 4.3 g/dL (3.4-5.0); Bilirubin Total 0.6 mg/dL (0.2-1.0); Potassium 4.6 mEq/L (3.5-5.1)
--- NOTE | 2023-01-18 19:40 | RAD REPORT ---
EXAM DESCRIPTION: CT - Stone Protocol - 01/18/2023 7:26 pm CLINICAL HISTORY: Flank pain. FLANK PAIN COMPARISON: Stone Protocol dated 12/25/2022 TECHNIQUE: Axial images were obtained without oral or IV contrast. Lack of contrast limits solid org an and vascular assessment. The [id number] spans the entirety of the system partially obscuring uppermost abdomen and lung bases. Coronal reformatted images were obtained and reviewed. All CT scans are performed using dose optimization technique as appropriate and may include automated exposure control or mA/KV adjustment according to patient size. FINDINGS: The lower lung mota are clear. Imaged portions of the liver and spleen show no suspicious findings on non-contrast imaging. The panc reas and adrenal glands are normal. No pathologic lymphadenopathy in the abdomen or pelvis. There is a 7-8 mm stone distal right ureter resulting moderate right hydronephrosis and hydroureter. Small calculus is present inferior calyx left kidney. No left-sided hydronephrosis. No bowel obstruction, free air, free fluid or abscess. Normal appendix noted. No significant bony abnormality. IMPRESSION: 7-8 mm stone distal right ureter resulting in moderate right hydronephrosis and hydroure ter. Small 1-2 mm calculus inferior calyx left kidney.
[2023-01-18] MEDS ORDERED: NA CHLORIDE 0.9% 1,000 ML ONE (20:34)
[2023-01-18] MEDS ORDERED: ONDANSETRON 4 MG/2 ML VIAL ONE (20:34)
[2023-01-18] MEDS ORDERED: HYDROMORPHONE HCL 1 MG/ML INJ ONE ×2 (20:34→22:11)
[2023-01-18] MEDS ORDERED: TAMSULOSIN 0.4 MG SR CAP ONE (20:47)
[2023-01-18] MEDS ORDERED: MAGNESIUM SULFATE 1 gm IVPB 1 GM/100 ML BAG IV ONE (20:47)
[2023-01-18 20:53] LABS: Specific Gravity 1.007 (1.005-1.030); Urine Bacteria None Seen /HPF (<20); Urine Bilirubin NEGATIVE (Negative); Urine Blood 2+ (Negative); Urine Clarity Clear (Clear); Urine Color Colorless (Yellow); Urine Glucose NEGATIVE (Negative); Urine Protein NEGATIVE (Negative); Urine RBC 21-50 /HPF (None Seen); Urine Urobilinogen Normal (Normal)
--- NOTE | 2023-01-18 22:09 | EDPHYS ---
Physician Documentation [facility] Name: Jack Zuniga Jr Age: 42 yrs Sex: Male : 1980 Arrival Date: 01/18/2023 Time: 17:56 Bed 6 Private MD: Buster Williamson ED Physician Delmer Holcomb HPI: 01/18 18:30 This 42 yrs old Male presents to ER via Ambulatory with complaints of Possible cp Kidney Stone. 18:30 The patient complains of pain in the right flank. cp 18:30 The pain radiates to the abdomen and right testicle. Onset: The symptoms/episode cp began/occurred this morning. Associated signs and symptoms: Pertinent positives: nausea, vomiting, Pertinent negatives: diarrhea, dysuria, fever, headache, hematuria, pain radiating to the lower extremities. Severity of pain: in the emergency department the pain is unchanged despite home interventions. Patient reports history of kidney stones and has been seen by DR Gauthier, urology. Historical: - Allergies: 18:17 No Known Allergies; aa5 - PMHx: 18:17 BPH; Hypertensive disorder; aa5 - PSHx: 18:17 hernia repair; aa5 - Immunization history:: Adult Immunizations unknown. - Social history:: Smoking status: Patient denies any tobacco usage or history of. ROS: 18:35 Back: Positive for flank pain, on the right. cp 18:35 Constitutional: Negative for fever. cp 18:35 Abdomen/GI: Positive for abdominal pain, nausea, vomiting. 18:35 Respiratory: Negative for cough, shortness of breath, wheezing. cp 18:35 Eyes: Negative for injury, pain, redness, and discharge. cp 18:35 Cardiovascular: Negative for chest pain, palpitations. 18:35 : Positive for flank pain, Negative for hematuria, burning with urination, difficulty urinating. 18:35 Skin: Negative for cellulitis, rash. 18:35 Neuro: Negative for altered mental status, dizziness, headache, numbness, syncope, weakness. 18:35 All other systems are negative. Exam: 18:40 Constitutional: The patient appears in no acute distress, alert, awake, non-toxic, well cp developed, well nourished, in obvious pain, uncomfortable. 18:40 Head/Face: Normocephalic, atraumatic. cp 18:40 Eyes: Periorbital structures: appear normal, Conjunctiva: normal, no exudate, no cp injection, Sclera: no appreciated abnormality, Lids and lashes: appear normal, bilaterally. 18:40 ENT: External ear(s): are unremarkable, Nose: is normal, Mouth: Lips: moist, Oral mucosa: pink and intact, moist, Posterior pharynx: is normal, airway is patent, no erythema, no exudate. 18:40 Neck: ROM/movement: is normal, is supple, without pain, no range of motions limitations.cp 18:40 Chest/axilla: Inspection: normal. 18:40 Cardiovascular: Rate: normal, Rhythm: regular, Edema: is not appreciated, JVD: is not appreciated. 18:40 Respiratory: the patient does not display signs of respiratory distress, Respirations: normal, no use of accessory muscles, no retractions, labored breathing, is not present, Breath sounds: are clear throughout, no decreased breath sounds, no stridor, no wheezing. 18:40 Abdomen/GI: Inspection: abdomen appears normal, Bowel sounds: active, all quadrants, Palpation: soft, in all quadrants, moderate abdominal tenderness, in the anterior aspect of right lateral abdomen, right upper quadrant and right lower quadrant. 18:40 Back: pain, that is severe, of the right mid back, ROM is painful, with all movement. 18:40 Skin: cellulitis, is not appreciated, no rash present. 18:40 Neuro: Orientation: to person, place \T\ time. Mentation: is normal, Motor: moves all fours, strength is normal, Sensation: is normal, Gait: unable to assess. Vital Signs: 18:14 BP 181 / 118; Pulse 83; Resp 16 S; Temp 98(TE); Pulse Ox 98% on R/A; aa5 20:44 BP 164 / 89; Pulse 86; Resp 17 S; Pulse Ox 99% on R/A; lg3 22:02 BP 161 / 88; Pulse 84; Resp 18 S; Pulse Ox 99% on R/A; lg3 23:22 BP 152 / 86; Pulse 81; Resp 18 S; Pulse Ox 98% on R/A; lg3 MDM: 18:15 Patient medically screened. cp 21:00 ED course: left message on voicemail of DR Gauthier concerning results of today's tests. cp 21:05 Data reviewed: vital signs, nurses notes, lab test result(s), radiologic studies, CT cp scan. 21:05 Consideration of Admission/Observation Escalation of care including cp admission/observation considered. 21:50 ED course: no call return from DR Gauthier, will transfer patient for urology consult. 01/19 00:35 Management of patient was discussed with the following: Hospitalist: DR Allen, hospitalist \T\[facility], will accept patient as transfer and consult urology. 01/18 18:23 Order name: CBC with Diff; Complete Time: 20:28 01/18 20:45 Interpretation: Normal except: RBC 5.70; ROSSY% 78.2; LYM% 10.3; NEUT A 8.2. 01/18 18:23 Order name: CMP; Complete Time: 20:28 01/18 21:00 Interpretation: Normal except: NA 135; CRE 1.53; GFR 58. 01/18 18:23 Order name: Lipase; Complete Time: 20:28 01/18 18:23 Order name: Urinalysis w/ reflexes; Complete Time: 20:59 01/18 23:08 Interpretation: Normal except: UBLD 2+. 01/18 19:04 Order name: CT Stone Protocol; Complete Time: 20:28 01/18 20:29 Interpretation: Report reviewed. 01/18 18:23 Order name: IV Saline Lock; Complete Time: 20:24 01/18 18:23 Order name: Labs collected and sent; Complete Time: 20:24 cp Administered Medications: 01/18 20:35 Drug: NS 0.9% IV 1000 ml Route: IV; Rate: 1 bolus; Site: left antecubital; lg3 22:00 Follow up: IV Status: Completed infusion; IV Intake: 1000ml lg3 20:35 Drug: Ondansetron IVP 4 mg Route: IVP; Site: left antecubital; lg3 22:00 Follow up: Response: No adverse reaction lg3 20:35 Drug: HYDROmorphone IVP 1 mg Route: IVP; Site: left antecubital; lg3 22:01 Follow up: Response: No adverse reaction; Pain is unchanged, physician notified lg3 20:40 Drug: Flomax PO 0.4 mg Route: PO; lg3 22:01 Follow up: Response: No adverse reaction lg3 20:40 Drug: Magnesium Sulfate IVPB 1 grams Route: IVPB; Infused Over: 30 mins; Site: left lg3 antecubital; 22:01 Follow up: Response: No adverse reaction; IV Status: Completed infusion; IV Intake: [id number] 22:09 Drug: HYDROmorphone IVP 1 mg Route: IVP; Site: left antecubital; lg3 23:22 Follow up: Response: No adverse reaction; Marked relief of symptoms; Pain is decreased lg3 01/19 00:24 Drug: HYDROmorphone IVP 1 mg Route: IVP; Site: left antecubital; lg3 00:35 Follow up: Response: No adverse reaction; Marked relief of symptoms lg3 00:24 Drug: Ondansetron IVP 4 mg Route: IVP; Site: left antecubital; lg3 00:35 Follow up: Response: No adverse reaction lg3 Disposition Summary: 01/18/23 22:07 Transfer Ordered Transfer Location: [facility] cp Reason: Higher level of care cp Condition: Stable cp Problem: new cp Symptoms: have improved cp Accepting Physician: DR Allen(01/19/23 00:36) lg3 Diagnosis - Other injury of right kidney, initial encounter cp - Hydronephrosis with renal and ureteral calculous obstruction - right cp Forms: - Medication Reconciliation Form cp - SBAR form cp Signatures: Dispatcher [employer] EDMS Alba Gleason RN RN aa5 Delmer Bernabe PA PA Belle Schultz RN RN lg3 Corrections: (The following items were deleted from the chart) 01/18 22:08 22:07 Doctor cp cp 22: 22:07 Calculus of ureter - right cp cp 23: 21:00 Normal except: UBLD 2+; URBC 21-50. cp cp 23: 22:08 Doctor cp cp 01/19 00:36 01/18 23:09 DR Allen cp lg3 01/19 15:33 01/18 21:00 ED course: left message on voicemail of DR Gauthier concerning results of cp today's tests. cp
--- NOTE | 2023-01-18 22:09 | ER ---
Nurse's Notes [facility] Name: Jack Zuniga Jr Age: 42 yrs Sex: Male : 1980 Arrival Date: 01/18/2023 Time: 17:56 Bed 6 Private MD: Buster Williamson Diagnosis: Other injury of right kidney, initial encounter;Hydronephrosis with renal and ureteral calculous obstruction-right Presentation: 01/18 18:14 Chief complaint: Patient states: right back pain radiating to RLQ, seen here for same aa5 complaint approximately 2-3 weeks ago. Pt states "I saw Dr. Gauthier and he said to give the kidney stone 2 weeks to pass it but I can't take it anymore". 18:14 Coronavirus screen: At this time, the client does not indicate any symptoms associated aa5 with coronavirus-19. Ebola Screen: Patient denies travel to an Ebola-affected area in the 21 days before illness onset. Initial Sepsis Screen: Does the patient meet any 2 criteria? No. Patient's initial sepsis screen is negative. Does the patient have a suspected source of infection? No. Patient's initial sepsis screen is negative. Risk Assessment: Do you want to hurt yourself or someone else? Patient reports no desire to harm self or others. Onset of symptoms was January 2023. 18:14 Method Of Arrival: Ambulatory aa5 18:14 Acuity: REGINA 3 aa5 Historical: - Allergies: 18:17 No Known Allergies; aa5 - PMHx: 18:17 BPH; Hypertensive disorder; aa5 - PSHx: 18:17 hernia repair; aa5 - Immunization history:: Adult Immunizations unknown. - Social history:: Smoking status: Patient denies any tobacco usage or history of. Screenin:44 [facility] ED Fall Risk Assessment (Adult) History of falling in the last 3 months, lg3 including since admission No falls in past 3 months (0 pts). Abuse screen: Denies threats or abuse. Denies injuries from another. Nutritional screening: No deficits noted. Tuberculosis screening: No symptoms or risk factors identified. Assessment: 20:44 General: Appears in no apparent distress. uncomfortable, Behavior is calm, cooperative. lg3 Pain: Complains of pain in right flank Pain currently is 9 out of 10 on a pain scale. Neuro: No deficits noted. Donovan Agitation-Sedation Scale (RASS): 0 - Alert and Calm Level of Consciousness is awake, alert, obeys commands, Oriented to person, place, time, situation. Cardiovascular: No deficits noted. Denies chest pain, shortness of breath, Capillary refill < 3 seconds Clubbing of nail beds is absent JVD is absent Patient's skin is warm and dry. Respiratory: No deficits noted. Airway is patent Respiratory effort is even, unlabored, Respiratory pattern is regular, symmetrical. GI: No deficits noted. Abdomen is round non-distended, Bowel sounds present X 4 quads. Abd is soft and non tender X 4 quads. : No deficits noted. No signs and/or symptoms were reported regarding the genitourinary system. EENT: No deficits noted. No signs and/or symptoms were reported regarding the EENT system. Derm: No deficits noted. No signs and/or symptoms reported regarding the dermatologic system. Skin is intact, is healthy with good turgor, Skin is dry, Skin is normal, Skin temperature is warm. Musculoskeletal: No deficits noted. No signs and/or symptoms reported regarding the musculoskeletal system. Circulation, motion, and sensation intact. Range of motion: intact in all extremities. 22:01 Reassessment: Patient appears in no apparent distress at this time. No changes from lg3 previously documented assessment. Patient and/or family updated on plan of care and expected duration. Pain level reassessed. Patient is alert, oriented x 3, equal unlabored respirations, skin warm/dry/pink. Pain: Complains of pain in right flank. 23:22 Reassessment: Patient appears in no apparent distress at this time. No changes from lg3 previously documented assessment. Patient and/or family updated on plan of care and expected duration. Pain level reassessed. Patient is alert, oriented x 3, equal unlabored respirations, skin warm/dry/pink. Patient states feeling better. 23:47 General: attempted to call report. Per [facility] nurse not available to take report at lg3 this time and will call back. Vital Signs: 18:14 BP 181 / 118; Pulse 83; Resp 16 S; Temp 98(TE); Pulse Ox 98% on R/A; aa5 20:44 BP 164 / 89; Pulse 86; Resp 17 S; Pulse Ox 99% on R/A; lg3 22:02 BP 161 / 88; Pulse 84; Resp 18 S; Pulse Ox 99% on R/A; lg3 23:22 BP 152 / 86; Pulse 81; Resp 18 S; Pulse Ox 98% on R/A; lg3 ED Course: 17:59 Patient arrived in ED. mr 18:00 Buster Williamson MD is Private Physician. mr 18:01 Delmer Bernabe PA is PHCP. cp 18:01 Delmer Holcomb MD is Attending Physician. cp 18:14 Arm band placed on. aa5 18:17 Triage completed. aa5 19:02 Initial lab(s) drawn, by me, sent to lab. Inserted saline lock: 20 gauge in left tm3 antecubital area, using aseptic technique. 19:29 CT Stone Protocol In Process Unspecified. EDMS 20:24 Belle Youssef RN is Primary Nurse. lg3 20:44 Patient has correct armband on for positive identification. Placed in gown. Bed in low lg3 position. Call light in reach. Side rails up X 1. Client placed on continuous cardiac and pulse oximetry monitoring. NIBP monitoring applied. acid remover on. Door closed. Noise minimized. Warm blanket given. Family accompanied patient. 22:45 Initial contact to [facility]. Spoke to Teresa Garcia RN. [facility] 23:[address] Jake Allen. [facility] 23:29 Hospital Bed approval at [facility] room 415 by Teresa Garcia RN. [facility] 23:57 [facility] ambulance was contacted. [facility] [id number] 00:26 Had to call and check for report due to Belle calling for report and the original [facility] accepting nurse stated that the nurse whom was assigned was busy. After speaking with them, the confusion was the room number was changed to [id number]. 00:36 No provider procedures requiring assistance completed. Patient transferred, IV remains lg3 in place. intact, No redness/swelling at site. Administered Medications: 01/18 20:35 Drug: NS 0.9% IV 1000 ml Route: IV; Rate: 1 bolus; Site: left antecubital; lg3 22:00 Follow up: IV Status: Completed infusion; IV Intake: 1000ml lg3 20:35 Drug: Ondansetron IVP 4 mg Route: IVP; Site: left antecubital; lg3 22:00 Follow up: Response: No adverse reaction lg3 20:35 Drug: HYDROmorphone IVP 1 mg Route: IVP; Site: left antecubital; lg3 22:01 Follow up: Response: No adverse reaction; Pain is unchanged, physician notified lg3 20:40 Drug: Flomax PO 0.4 mg Route: PO; lg3 22:01 Follow up: Response: No adverse reaction lg3 20:40 Drug: Magnesium Sulfate IVPB 1 grams Route: IVPB; Infused Over: 30 mins; Site: left lg3 antecubital; 22:01 Follow up: Response: No adverse reaction; IV Status: Completed infusion; IV Intake: [id number] 22:09 Drug: HYDROmorphone IVP 1 mg Route: IVP; Site: left antecubital; lg3 23:22 Follow up: Response: No adverse reaction; Marked relief of symptoms; Pain is decreased lg3 06 00:24 Drug: HYDROmorphone IVP 1 mg Route: IVP; Site: left antecubital; lg3 00:35 Follow up: Response: No adverse reaction; Marked relief of symptoms lg3 00:24 Drug: Ondansetron IVP 4 mg Route: IVP; Site: left antecubital; lg3 00:35 Follow up: Response: No adverse reaction lg3 Medication: 00:36 VIS not applicable for this client. lg3 Intake: 06 22:00 IV: 1000ml; Total: 1000ml. lg3 22:01 IV: 50ml; Total: 1050ml. lg3 Outcome: 22:07 ER care complete, transfer ordered by MD. solorzano 01/19 00:36 Transferred by ground EMS to [facility], Transfer form completed. lg3 Condition: stable Instructed on the need for transfer, Demonstrated understanding of instructions. 00:36 Patient left the ED. lg3 Signatures: Dispatcher [employer] EDMS Torsten Gamez 3 Rina Mtz Victorino, Alba, RN RN aa5 Delmer Bernabe PA PA Belle Schultz RN RN lg3 Jay Santo [facility] Corrections: (The following items were deleted from the chart) 00:39 00:26 Had to call and check for report due to Belle calling for report and the [facility] accepting nurse stated that the nurse was busy. After speaking with them, the confusion was the room number was changed to [id number] [facility]
[2023-01-19] MEDS ORDERED: HYDROMORPHONE HCL 1 MG/ML INJ ONE (00:29)
[2023-01-19] MEDS ORDERED: ONDANSETRON 4 MG/2 ML VIAL ONE (00:29)
[2023-01-19 02:21] VITALS: TEMP 98
[2023-01-19 02:34] VITALS: BP 152/86; O2SAT 98
== END 2023-01-19 00:36 | disposition short-term general hospital (02) ==
LOC: ER 17:56
DX: S37.091A Other injury of right kidney, initial encounter (principal); N13.2 Hydronephrosis with renal and ureteral calculous obstruction; M54.89 Other dorsalgia; R10.31 Right lower quadrant pain; R11.2 Nausea with vomiting, unspecified; I10 Essential (primary) hypertension
CPT/HCPCS: 36415; 74176; 76377; 80053; 81001; 83690; 85025; 96365; 96375; 99285; J1170; J2405; J3475; J7030